=== PATIENT | male | born 2000 | race Two or more races ===

== ENCOUNTER 2022-06-21 01:53 | Emergency (ER) | payer OTHER ==
[~2022-06-21] VITALS: Ht 175.3 cm; Wt 130.9 kg
[2022-06-21 04:42] VITALS: BP 130/77
== END 2022-06-21 04:49 | disposition home or self-care (01) ==
LOC: EMS 01:55
DX: R00.2 Palpitations (principal); F12.90 Cannabis use, unspecified, uncomplicated
CPT/HCPCS: 93005; 99283